=== PATIENT | male | born 1985 | race Caucasian/White ===

== ENCOUNTER 2018-05-01 16:10 | Inpatient (IN) | payer BC ==
[~2018-05-01] VITALS: Ht 172.7 cm; Wt 123.8 kg
[2018-05-01 16:46] LABS: HEMATOCRIT 44.9 % (38.0-50.0); HEMOGLOBIN 15.9 G/DL (12.5-16.6); MCH 32.4 PG (29.0-34.0); MCHC 35.4 G/DL (30.0-36.0); MCV 91.4 FL (86-99); PLATELET COUNT 157 K/uL (156-360); RBC DIS.WIDTH-CV 13.2 % (11.8-14.6); RBC DIS.WIDTH-SD 45.1 % (39-53); RED BLOOD COUNT 4.91 M/uL (4.00-5.50); WHITE BLOOD COUNT 17.1 K/uL (4.1-10.2)
[2018-05-01 16:55] LABS: ALBUMIN 4.2 g/dL (3.2-4.8); CHLORIDE 96 mEq/L (99-109); POTASSIUM 3.8 mEq/L (3.7-5.4); SODIUM 133 mEq/L (136-147)
[2018-05-01 16:57] LABS: GLUCOSE 148 mg/dL (70-99); TOTAL PROTEIN 7.8 g/dL (6.4-8.3)
[2018-05-01 16:59] LABS: TOTAL BILIRUBIN 1.2 mg/dL (0.0-1.0)
[2018-05-01 17:01] LABS: ALKALINE PHOSPHATASE 69 IU/L (3-129); GFR ESTIMATE (CALCULATED) > 59 mL/min/ (58.99-99999)
[2018-05-01 17:02] LABS: UREA NITROGEN (BUN) 13 mg/dL (9-23)
[2018-05-01 17:03] LABS: AST (GOT) 25 IU/L (2-34)
[2018-05-01] MEDS ORDERED: ALPRAZOLAM1 MG PO (17:03)
[2018-05-01 17:04] LABS: ALT (GPT) 37 IU/L (3-49); LIPASE 17 U/L (1.0-51.0)
[2018-05-01] MEDS ORDERED: TYLENOL EXTRA500 MG PO (18:32)
[2018-05-01] MEDS ORDERED: ADVIL200 MG PO (18:32)
[2018-05-02] VITALS (8 sets, daily range): BP systolic 116–124; BP diastolic 56–63
[2018-05-02 05:29] LABS: HEMATOCRIT 40.1 % (38.0-50.0); MCH 31.9 PG (29.0-34.0); MCHC 33.9 G/DL (30.0-36.0); MCV 94.1 FL (86-99); PLATELET COUNT 120 K/uL (156-360); RBC DIS.WIDTH-CV 13.7 % (11.8-14.6); RBC DIS.WIDTH-SD 47.2 % (39-53); RED BLOOD COUNT 4.26 M/uL (4.00-5.50); WHITE BLOOD COUNT 13.2 K/uL (4.1-10.2)
[2018-05-02 05:40] LABS: HEMOGLOBIN 13.6 G/DL (12.5-16.6)
[2018-05-02 05:53] LABS: CHLORIDE 100 MEQ/L (99-109); GLUCOSE 112 mg/dL (70-99); SODIUM 135 MEQ/L (136-147); UREA NITROGEN (BUN) 12 mg/dL (9-23)
[2018-05-02 06:13] LABS: POTASSIUM 4.6 MEQ/L (3.7-5.4)
[2018-05-02 06:47] LABS: CREATININE 1.1 MG/DL (0.6-1.3); GFR ESTIMATE (CALCULATED) > 59 mL/min/ (58.99-99999)
[2018-05-03] VITALS (7 sets, daily range): BP systolic 97–133; BP diastolic 56–70
[2018-05-03 05:30] LABS: HEMATOCRIT 38.2 % (38.0-50.0); HEMOGLOBIN 12.8 G/DL (12.5-16.6); MCH 31.5 PG (29.0-34.0); MCHC 33.5 G/DL (30.0-36.0); MCV 94.1 FL (86-99); PLATELET COUNT 115 K/uL (156-360); RBC DIS.WIDTH-CV 13.5 % (11.8-14.6); RBC DIS.WIDTH-SD 46.9 % (39-53); RED BLOOD COUNT 4.06 M/uL (4.00-5.50); WHITE BLOOD COUNT 9.2 K/uL (4.1-10.2)
[2018-05-03 06:41] LABS: CHLORIDE 98 MEQ/L (99-109); CREATININE 0.8 MG/DL (0.6-1.3); GFR ESTIMATE (CALCULATED) > 59 mL/min/ (58.99-99999); GLUCOSE 100 mg/dL (70-99); POTASSIUM 4.3 MEQ/L (3.7-5.4); SODIUM 135 MEQ/L (136-147); UREA NITROGEN (BUN) 7 mg/dL (9-23)
[2018-05-04 04:02] VITALS: BP 115/74
[2018-05-04 05:39] LABS: HEMATOCRIT 38.5 % (38.0-50.0); HEMOGLOBIN 12.9 G/DL (12.5-16.6); MCH 31.1 PG (29.0-34.0); MCHC 33.5 G/DL (30.0-36.0); MCV 92.8 FL (86-99); PLATELET COUNT 144 K/uL (156-360); RBC DIS.WIDTH-CV 13.2 % (11.8-14.6); RBC DIS.WIDTH-SD 45.5 % (39-53); RED BLOOD COUNT 4.15 M/uL (4.00-5.50); WHITE BLOOD COUNT 8.1 K/uL (4.1-10.2)
[2018-05-04 06:03] LABS: CHLORIDE 103 MEQ/L (99-109); CREATININE 0.8 MG/DL (0.6-1.3); GFR ESTIMATE (CALCULATED) > 59 mL/min/ (58.99-99999); GLUCOSE 89 mg/dL (70-99); POTASSIUM 4.1 MEQ/L (3.7-5.4); SODIUM 139 MEQ/L (136-147); UREA NITROGEN (BUN) 8 mg/dL (9-23)
[2018-05-04 07:10] VITALS: BP 96/65
[2018-05-04] MEDS ORDERED: NICOTINE PATCH1 EAC2 TD (08:37)
[2018-05-04] MEDS ORDERED: LEVAQUIN750 MG PO (08:37)
[2018-05-04] MEDS ORDERED: FLAGYL500 MG PO (08:37)
[2018-05-04] MEDS ORDERED: ONDANSETRON HCL8 MG PO (08:37)
[2018-05-04] MEDS ORDERED: DIFLUCAN200 MG PO (08:37)
[2018-05-04] MEDS ORDERED: COLACE100 MG PO (08:37)
[2018-05-04] MEDS ORDERED: DILAUDID4 MG PO (08:37)
== END 2018-05-04 13:00 | disposition home or self-care (01) | DRG 853 ==
LOC: EME 16:10 → ENRESERV 18:23 → SDC 21:02 → EME 21:02 → 2SOUTH 21:07 → 4EAST 23:30 → ENRESERV 23:35 → 4EAST 05-02 01:04 → ENRESERV 05-03 15:58 → 2EAST 05-03 17:06
PROVIDERS: Nurse Practitioner Family; Surgery
PROC: 0DTJ4ZZ Resection of Appendix, Percutaneous Endoscopic Approach (ICD-10-PCS; principal; 2018-05-01)
DX: A41.9 Sepsis, unspecified organism (principal); K35.2 Acute appendicitis with generalized peritonitis; I96 Gangrene, not elsewhere classified; E66.01 Morbid (severe) obesity due to excess calories; Z68.41 Body mass index [BMI] 40.0-44.9, adult
CPT/HCPCS: 74177; 80048; 80053; 83605; 83690; 85027; 86850; 86900; 86901; 87040; 87076; 87185; 87801; 88304; 94799; 99281; 99285; J0131; J0330; J1170; J1450; J1644; J1885; J1956; J2310; J2405; J2710; J3010; J7030; J7120; J7643; S0028; S0030